=== PATIENT | female | born 1955 | race Caucasian/White ===

== ENCOUNTER 2021-06-05 13:14 | Emergency (ER) | payer MEDICARE, OTHER, SELFPAY ==
[2021-06-05 13:58] VITALS: BP 126/70; PULSE 88; RESP 18; TEMP 37.3; O2SAT 96
--- NOTE | 2021-06-05 14:25 | ED.SKABFB ---
HPI - Skin/Abscess/Foreign Bdy General Chief complaint: Skin/Abscess/Foreign Body Stated complaint: rash Time Seen by Provider: 06/05/21 14:26 Source: patient and family History of Present Illness HPI narrative: Patient presents with hives to both arms and lower legs. Patient denies any new detergents, no new soaps no new pets no new medications no new exposures that she is aware of. Patient denies any shortness of breath no trouble swallowing and no drooling. Patient took Benadryl prior to arrival which has had minimal relief in her itching. MD complaint: rash Related Data Allergies Allergy/AdvReac Type Severity Reaction Status Date / Time Sulfa (Sulfonamide Allergy Severe Swelling Verified 06/05/21 14:14 Antibiotics) of Lip/Tongue/Throat Review of Systems Review of Systems: CONSTITUTIONAL: Denies fever, chills, or sweats. EYES: Denies visual changes, redness, or discharge. ENT: Denies rhinorrhea, congestion, sore throat, or otalgia. CARDIOVASCULAR: Denies chest pain, palpitations, or edema. RESPIRATORY: Denies cough or dyspnea. GASTROINTESTINAL: Denies abdominal pain, nausea, vomiting, or diarrhea. GENITOURINARY: Denies dysuria or hematuria. SKIN: Denies rash or itching. MUSCULOSKELETAL: Denies back pain, joint pain, or myalgia. NEUROLOGIC: Denies headache, numbness, or weakness. PSYCHIATRIC: Denies anxiety or depression. PMFSH Comments At time of signature, agree with nursing past medical, surgical, social and family history. There is no relevant family history pertinent to the presenting complaint Exam Narrative: GENERAL: Well-appearing, well-nourished, and in no acute distress. HEAD: Normocephalic, atraumatic. EYES: PERRLA and EOMI. ENT: Nares clear, no rhinorrhea or epistaxis. Mucous membranes moist. NECK: Supple. CHEST: Clear to auscultation. No respiratory distress. HEART: Regular rate and rhythm. No murmur heard. Normal peripheral pulses. ABDOMEN: Soft, nontender, nondistended, normal active bowel sounds. EXTREMITIES: Normal range of motion. No edema. SKIN: Warm, dry, no rash. No induration fluctuance or drainage. No surrounding erythremia. No lesions and TTP. No specific pattern or dermatomal distribution. Several different stages with occasional scabbing and excoriation. Spares palms and soles. Findings consistent with contact dermatitis. NEURO: No focal deficits. Alert and oriented x3. [place] Coma Scale Eye Opening: Spontaneous 4 [place] Coma Scale Motor: Obeys Commands 6 [place] Coma Scale Verbal: Oriented 5 [place] Coma Scale Total 15 Course Course Level of Care: Express Care Visit Vital Signs Vital signs: Vital Signs Temperature 37.3 C 06/05/21 13:58 Pulse Rate 88 06/05/21 13:58 Respiratory Rate 18 06/05/21 13:58 Blood Pressure 126/70 06/05/21 13:58 Pulse Oximetry 96 06/05/21 13:58 Temperature 37.3 C 06/05/21 13:58 Pulse Rate 88 06/05/21 13:58 Respiratory Rate 18 06/05/21 13:58 Blood Pressure 126/70 06/05/21 13:58 Pulse Oximetry 96 06/05/21 13:58 Critical dx considered and discussed with pt. Educated patient on red flag s/s and to go to ED if s/s occur. Discussed with pt when to return to [facility] or primary care provider. Pt gave verbal undertstanding, all questions were answered, and pt was agreeable to plan DISCUSSED EVALUATION AND TEST RESULTS IN THE [facility]. PATIENT/FAMILY UNDERSTAND IMPORTANCE OF CLOSE OBSERVATION AND RETURNING OR GOING TO THE EMERGENCY ROOM IF ANY WORSENING CONDITION. . DISCUSSED EVALUATION AND TEST RESULTS IN THE [facility]. PATIENT/FAMILY UNDERSTAND IMPORTANCE OF CLOSE OBSERVATION AND RETURNING OR GOING TO THE EMERGENCY ROOM IF ANY WORSENING CONDITION. . MDM - Skin/Abscess/Foreign Bdy Differential Diagnosis Differential diagnosis: Likely abscess of skin or subcutaneous tissue, viral exanthem, dermatophytosis, urticaria, herpes zoster, allergic reaction to drug, cellulitis, eczema, insect bites, impetigo
[2021-06-05] MEDS: methylPREDNISolone SOD SUCC 125 MG VIAL IM (14:33)
== END 2021-06-05 14:55 | disposition home or self-care (01) ==
PROVIDERS: Emergency Provider Nurse Practitioner Family; PCP Internal Medicine
DX: L25.9 Unspecified contact dermatitis, unspecified cause (principal); E11.40 Type 2 diabetes mellitus with diabetic neuropathy, unspecified; E78.00 Pure hypercholesterolemia, unspecified; E11.22 Type 2 diabetes mellitus with diabetic chronic kidney disease; N18.6 End stage renal disease; Z99.2 Dependence on renal dialysis; Z95.5 Presence of coronary angioplasty implant and graft
CPT/HCPCS: 96372; 99213; G0463; J2930

== ENCOUNTER 2021-06-06 12:59 | Emergency (ER) | payer MEDICARE, OTHER, SELFPAY ==
[2021-06-06 14:52] VITALS: BP 89/74; PULSE 124; RESP 20; TEMP 36.5; O2SAT 96
--- NOTE | 2021-06-06 15:55 | ED.SKABFB ---
HPI - Skin/Abscess/Foreign Bdy General Chief complaint: Skin/Abscess/Foreign Body Stated complaint: full body rash Time Seen by Provider: 06/06/21 15:48 Source: patient, RN notes reviewed and old records reviewed Mode of arrival: ambulatory Limitations: no limitations History of Present Illness HPI narrative: Patient presents today complaining of severely pruritic rash that started yesterday and has spread to her entire body. Patient presented yesterday to express care and was given a dose of 125 mg Solu-Medrol for her rash. She was not discharged home with any oral steroids. States the rash did not resolve with the injection. She has been taking Benadryl without relief. She came back today with no resolution of symptoms. States she is itching so bad she did not get any sleep last night as well. Patient is a dialysis patient and has been receiving Keflex 5 times in the last 10 days during her dialysis. Other than this, she has had no other exposures to new products or foods. MD complaint: rash Related Data Home Medications Medication Instructions Recorded Confirmed apixaban [Eliquis] 5 mg PO DAILY 06/05/21 06/06/21 atorvastatin 80 mg PO DAILY 06/05/21 06/06/21 carbamazepine 200 mg PO DAILY 06/05/21 06/06/21 ergocalciferol (vitamin D2) 1,250 mcg PO WEEKLY 06/05/21 06/06/21 fenofibrate nanocrystallized 48 mg PO DAILY 06/05/21 06/06/21 gabapentin 300 mg PO TID 06/05/21 06/06/21 hydrocodone-acetaminophen 1 tablet PO Q4-6H PRN 06/05/21 06/06/21 levothyroxine 50 mcg PO DAILY 06/05/21 06/06/21 midodrine 2.5 mg PO DAILY 06/05/21 06/06/21 ropinirole 1 mg PO BID 06/05/21 06/06/21 zolpidem 10 mg PO DAILY 06/05/21 06/06/21 Allergies Allergy/AdvReac Type Severity Reaction Status Date / Time Sulfa (Sulfonamide Allergy Severe Swelling Verified 06/06/21 15:33 Antibiotics) of Lip/Tongue/Throat Review of Systems Review of Systems: CONSTITUTIONAL: Denies body aches, fever, chills, or sweats. EYES: Denies visual changes, redness, or discharge. ENT: Denies rhinorrhea, congestion, sore throat, or otalgia. CARDIOVASCULAR: Denies chest pain, palpitations, or edema. RESPIRATORY: Denies cough or dyspnea. GASTROINTESTINAL: Denies abdominal pain, nausea, vomiting, or diarrhea. GENITOURINARY: Denies dysuria or hematuria. SKIN: Denies wounds.+ Pruritic rash MUSCULOSKELETAL: Denies back pain, joint pain, or myalgia. NEUROLOGIC: Denies headache, numbness, tingling, or weakness. PSYCH: Denies depression or anxiety. [facility] Past Medical History Medical History (Updated 06/06/21 @ 16:02 by Anika Waterman, [facility], ) Dialysis patient Kidney failure Comments At time of signature, I have reviewed and agree with nursing past medical, surgical, social and family history unless otherwise noted. Please see nursing chart for further information. There is no relevant family history pertinent to the presenting complaint Exam Narrative: GENERAL: Well-appearing, well-nourished, and in acute distress. She is scratching her entire body profusely. HEAD: Normocephalic, atraumatic. EYES: EOMI. No redness or drainage. Conjunctivae normal. ENT: Mucous membranes pink and moist. NECK: Normal AROM. CHEST: No respiratory distress. EXTREMITIES: Normal range of motion. No edema. SKIN: Warm, dry. Capillary refill normal. Normal skin turgor. Patient has an erythematous urticarial rash spread over her back, chest, abdomen, arms and legs. No swelling to the face, lips, tongue. She looks very uncomfortable. NEURO: No focal deficits. Alert and oriented x3. Gait steady. PSYCH: Normal affect. No signs of depression or anxiety. Course Course Level of Care: Express Care Visit Vital Signs Vital signs: Vital Signs Temperature 97.7 F 06/06/21 14:52 Pulse Rate 124 H 06/06/21 14:52 Respiratory Rate 20 06/06/21 14:52 Blood Pressure 89/74 L 06/06/21 14:52 Pulse Oximetry 96 06/06/21 14:52 Temperature 97.7 F 06/06/21 14:52 Pulse Ra
== END 2021-06-06 16:13 | disposition home or self-care (01) ==
PROVIDERS: Emergency Provider Nurse Practitioner; PCP Internal Medicine
DX: L50.9 Urticaria, unspecified (principal); E11.22 Type 2 diabetes mellitus with diabetic chronic kidney disease; N18.6 End stage renal disease; Z99.2 Dependence on renal dialysis; E78.00 Pure hypercholesterolemia, unspecified
CPT/HCPCS: 99213; G0463